=== PATIENT | male | born 1960 | race Hispanic/Latino ===

== ENCOUNTER 2019-03-31 19:58 | Emergency (ER) | payer OTHER ==
[2019-03-31] MEDS ORDERED: predniSONE 20 MG TAB ONE (21:03)
[2019-03-31] MEDS ORDERED: Benzonatate 100 MG CAP ONE (21:03)
== END 2019-03-31 21:15 | disposition home or self-care (01) ==
LOC: MADERS 19:58
DX: J06.9 Acute upper respiratory infection, unspecified (principal); I10 Essential (primary) hypertension; E78.5 Hyperlipidemia, unspecified
CPT/HCPCS: 99283; J7512

== ENCOUNTER 2019-04-28 17:21 | Emergency (ER) | payer OTHER ==
[2019-04-28] MEDS ORDERED: Ibuprofen 800 MG TAB ONE (17:43)
== END 2019-04-28 17:50 | disposition home or self-care (01) ==
LOC: MADERS 17:21
DX: H10.9 Unspecified conjunctivitis (principal); E78.5 Hyperlipidemia, unspecified; I10 Essential (primary) hypertension; E78.00 Pure hypercholesterolemia, unspecified; Z79.899 Other long term (current) drug therapy
CPT/HCPCS: 99283